=== PATIENT | female | born 1980 | race Caucasian/White ===

== ENCOUNTER 2020-07-06 17:37 | Observation (INO) ==
[2020-07-06 17:41] VITALS: BMI 17.9
[2020-07-06 18:10] LABS: BASOPHILS # (AUTO) 0.1 X10^3/uL (0.0-0.1); BASOPHILS % (AUTO) 0.8 % (0.2-1.0); EOSINOPHILS # (AUTO) 0.1 x10^3/uL (0.0-0.2); EOSINOPHILS % (AUTO) 1.3 % (0.9-2.9); HEMATOCRIT 42.2 % (36.0-47.0); HEMOGLOBIN 14.1 g/dL (12.0-16.0); LYMPHOCYTES # (AUTO) 3.2 X10^3/uL (1.3-2.9); LYMPHOCYTES % (AUTO) 35.5 % (21.0-51.0); MEAN CORPUSCULAR HEMOGLOBIN 34.7 pg (27.0-34.0); MEAN CORPUSCULAR HGB CONC 33.5 g/dL (33.0-35.0); MEAN CORPUSCULAR VOLUME 103.6 fL (80.0-100.0); MEAN PLATELET VOLUME 8.4 fL (7.4-11.0); MONOCYTES # (AUTO) 0.6 x10^3/uL (0.3-0.8); MONOCYTES % (AUTO) 6.6 % (0.0-13.0); NEUTROPHILS % (AUTO) 55.8 % (42.0-75.0); PLATELET COUNT 346 X10^3/uL (150.0-450.0); RED BLOOD COUNT 4.08 X10^6/uL (3.5-5.4); RED CELL DISTRIBUTION WIDTH 13.2 % (11.6-16.5); WHITE BLOOD COUNT 8.9 X10^3/uL (3.6-10.0)
[2020-07-06 18:29] LABS: ALANINE AMINOTRANSFERASE 23 Units/L (12-78); ALBUMIN 3.6 g/dL (3.4-5.0); ALKALINE PHOSPHATASE 168 Units/L (46-116); ASPARTATE AMINO TRANSFERASE 23 Units/L (15-37); BLOOD UREA NITROGEN 7 mg/dL (7-18); CALCIUM 8.9 mg/dL (8.5-10.1); CARBON DIOXIDE 21.7 mmol/L (21-32); CHLORIDE 101 mmol/L (98-107); CKMB % 1.9 % (<4); COR NA(FOR HYPERGLY) 144 mmol/L (136-145); CREATINE KINASE 53 Units/L (26-192); CREATINE KINASE MB < 1.0 ng/mL (0-4.0); CREATININE 1.07 mg/dL (0.55-1.02); MAGNESIUM 1.6 mg/dL (1.7-2.9); SODIUM 138 mmol/L (136-145); TOTAL PROTEIN 6.6 g/dL (6.4-8.2); TROPONIN I < 0.02 ng/mL (0-1.5); eGFR NON BLACK RACES > 60 (>60)
--- NOTE | 2020-07-06 19:02 | RAD ---
HISTORYCHEST PAIN/TIGHTNESSSTUDYCHEST, 1 [id number] lungs are clear. No pneumothorax or significant effusion.Heart size is normal.Bones are unremarkable.EKG leads are noted.IMPRESSION1. No significant abnormalityElectronically signed by: Manjinder Oleary (Jul 06, 2020 19:00:38)
--- NOTE | 2020-07-06 19:34 | DR.CP ---
HPI Time Seen Time Seen by Provider: 07/06/20 18:32 PCP Primary Care Physician: ASHLEE HPI Comment HPI Comment: Patient presents with chest pain and palpitations since a few days ago. Notes that she was seen here on for the same and was recommended for admission. Notes that she left AMA because she had no childcare. Notes that sx have persisted. Complaint Chief Complaint:: PT C/O FLUCTUATING HEART RATE AND INTERMITTEN CHEST PAIN/ TIGHTNESS. PT STATES SHE HAS BEEN HAVING THIS PROBLEM GOING ON SINCE LAST SUNDAY. PT STATES SHE CAME TO ED LAST SUNDAY. HER SYMPTOMS HAVE NOT GOTTEN ANY BETTER.- COVID-19 Coronavirus risk:travel/contact w/high risk person: No Has patient experienced Coronavirus symptoms: No Source History Provided: Patient Mode of Arrival Mode of Arrival: Ambulatory Timing Onset of Chief Complaint: 06/30/20 PMH PMH Past Medical History: Yes Past Medical History: Diabetes and Headaches Past Surgical History: Yes Surgical History: Hysterectomy Family History History of Family Medical Conditions: Yes Family Medical History: Diabetes Mellitus Social History Does patient currently use any type of tobacco product: Yes Have you used tobacco products in the last 12 months: Yes Type of Tobacco Use: Cigarettes Does any household member use tobacco: Yes Alcohol Use: None Do you use any recreational Drugs:: No Lives With: Family Lives Where: Home Travel Risk Coronavirus risk:travel/contact w/high risk person: No Has patient experienced Coronavirus symptoms: No Infectious screening In the last 2 months have you had wt loss of >10#?: NO Have you had fever, night sweats or hemotysis?: No Have you traveled outside the country in the last 6 months?: No Isolation: Standard ROS Review of Systems Constitutional: See HPI Cardiovascular: Chest Pain and Palpitations All Other Systems: Reviewed and Negative PE Vitals Vitals: Temperature 98.5 F Pulse Rate 112 Respiratory Rate 20 Blood Pressure [Left Arm] 99/58 Blood Pressure 121/56 O2 Sat by Pulse Oximetry 97 General Limitations: No Limitations General Appearance: Alert and In No Apparent Distress Head Head Exam: Normal Inspection, Atraumatic and Normocephalic Eyes Eye exam: Normal Appearance, PERRL and EOMI ENT ENT Exam: Normal Exam Chest Chest Inspection: Normal Inspection and Symmetric Chest Wall Rise Respiratory Respiratory Exam: Normal Lung Sounds Bilat Respiratory Exam: Bilateral: Clear to Auscultation Cardiovascular Cardiovascular Exam: Regular Rate, Normal Rhythm and Normal Heart Sounds Abdominal Exam Abdominal Exam: Normal Inspection, Normal Bowel Sounds and Soft Extremities Extremities Exam: Normal Inspection Neurologic Neurological Exam: Alert and Oriented X3 Psychiatric Psychiatric Exam: Normal Affect and Normal Mood Skin Skin Exam: Warm, Dry and Intact COURSE Reevaluation 1st: Unchanged Consultation Called: 20:09 Consultation Comments: Spoke with Dr. Gerard who accepts patient for admission. ROR Labs Reviewed Laboratory Results Reviewed?: Yes Result Diagrams: 07/06/20 17:50 07/06/20 17:50 Laboratory: WBC 8.9 X10^3/uL (3.6-10.0) 07/06/20 17:50 RBC 4.08 X10^6/uL (3.5-5.4) 07/06/20 17:50 Hgb 14.1 g/dL (12.0-16.0) 07/06/20 17:50 Hct 42.2 % (36.0-47.0) 07/06/20 17:50 MCV 103.6 fL (80.0-100.0) H 07/06/20 17:50 MCH 34.7 pg (27.0-34.0) H 07/06/20 17:50 MCHC 33.5 g/dL (33.0-35.0) 07/06/20 17:50 RDW 13.2 % (11.6-16.5) 07/06/20 17:50 Plt Count 346 X10^3/uL (150.0-450.0) 07/06/20 17:50 MPV 8.4 fL (7.4-11.0) 07/06/20 17:50 Neut % (Auto) 55.8 % (42.0-75.0) 07/06/20 17:50 Lymph % (Auto) 35.5 % (21.0-51.0) 07/06/20 17:50 [place] % (Auto) 6.6 % (0.0-13.0) 07/06/20 17:50 Eos % (Auto) 1.3 % (0.9-2.9) 07/06/20 17:50 Baso % (Auto) 0.8 % (0.2-1.0) 07/06/20 17:50 Neut # (Auto) 5.0 x10^3/uL (2.2-4.8) H 07/06/20 17:50 Lymph # (Auto) 3.2 X10^3/uL (1.3-2.9) H 07/06/20 17:50 [place] # (Auto) 0.6 x10^3/uL (0.3-0.8) 07/06/20 17:50 Eos # (Auto) 0.1 x10^3/uL (0.0-0.2) 07/06/20 17:50 Baso # (Auto) 0.1 X10^3/uL (0.0-0.1) 07/06/20 17:50 Absolute Nucleated RBC 0.1 /100WBC 07/06/20 17:50 PT 13.4 SECONDS (11.8-14.3) 07/06/20 18:07 INR Target Range - 07/06/20 18:07 INR 1.08 (0.8-1.3) 07/06/20 18:07 APTT 26.5 SECONDS (22.9-36.5) 07/06/20 18:07 PTT Comment - 07/06/20 18:07 D-Dimer < 0.27 ug/ml (0.0-0.57) 07/06/20 18:07 Sodium 138 mmol/L (136-145) 07/06/20 17:50 Corrected Sodium 144 mmol/L (136-145) 07/06/20 17:50 Potassium 3.3 mmol/L (3.5-5.1) L 07/06/20 17:50 Chloride 101 mmol/L (98-107) 07/06/20 17:50 Carbon Dioxide 21.7 mmol/L (21-32) 07/06/20 17:50 BUN 7 mg/dL (7-18) 07/06/20 17:50 Creatinine 1.07 mg/dL (0.55-1.02) H 07/06/20 17:50 Est GFR (MDRD) Af Amer > 60 (>60) 07/06/20 17:50 Est GFR (MDRD) Non-Af > 60 (>60) 07/06/20 17:50 Glucose 344 mg/dL (65-99) H 07/06/20 17:50 Calcium 8.9 mg/dL (8.5-10.1) 07/06/20 17:50 Corrected Calcium TNP 07/06/20 17:50 Magnesium 1.6 mg/dL (1.7-2.9) L 07/06/20 17:50 Total Bilirubin 0.20 mg/dL (0.2-1.0) 07/06/20 17:50 AST 23 Units/L (15-37) 07/06/20 17:50 ALT 23 Units/L (12-78) 07/06/20 17:50 Alkaline Phosphatase 168 Units/L (46-116) H 07/06/20 17:50 Creatine Kinase 53 Units/L (26-192) 07/06/20 17:50 CK-MB (CK-2) < 1.0 ng/mL (0-4.0) 07/06/20 17:50 CK/CKMB % Calc 1.9 % (<4) 07/06/20 17:50 Troponin I < 0.02 ng/mL (0-1.5) 07/06/20 17:50 Total Protein 6.6 g/dL (6.4-8.2) 07/06/20 17:50 Albumin 3.6 g/dL (3.4-5.0) 07/06/20 17:50 Globulin 3.0 g/dL (2.5-4.5) 07/06/20 17:50 Albumin/Globulin Ratio 1.2 Ratio (1.1-2.1) 07/06/20 17:50 TSH 3rd Generation 0.817 uIU/mL (0.358-3.74) 07/06/20 17:50 XRAY X-ray Results: HISTORY CHEST PAIN/TIGHTNESS STUDY CHEST, 1 VIEW COMPARISON 07/01/2020 FINDINGS The lungs are clear. No pneumothorax or significant effusion. Heart size is normal. Bones are unremarkable. EKG leads are noted. IMPRESSION 1. No significant abnormality Electronically signed by: Manjinder Oleary (Jul 06, 2020 19:00:38) Opioid Opioid Risk Tool Age (Ashok box if 16-45): Yes History of Preadolescent Sexual Abuse: No Total: 1 Total Score Risk Category: Low Risk Copyright: Maxime ROMERO predicting aberrant behaviors Diagnosis Discharge Problem: Acute chest pain, Heart palpitations
[2020-07-06] MEDS ORDERED: NS 1000 ML 1,000 ML ONE (20:40)
[2020-07-06] MEDS: NS 1000 ML 1,000 ML IV SCH ×2 (20:46→20:47)
[2020-07-06] MEDS ORDERED: LOPRESSOR TAB 50 MG PO SCH (21:00)
[2020-07-06 21:21] LABS: CREATINE KINASE 49 Units/L (26-192); CREATINE KINASE MB < 1.0 ng/mL (0-4.0); TROPONIN I < 0.02 ng/mL (0-1.5)
[2020-07-06] MEDS ORDERED: PATIENT'S HOME MEDICATION (Insulin Glargine [Basaglar Kwikpen U-100 Insulin] 100 unit/mL ( SUBCUT SCH (23:37)
[2020-07-07 02:27] LABS: BASOPHILS # (AUTO) 0.1 X10^3/uL (0.0-0.1); BASOPHILS % (AUTO) 1.2 % (0.2-1.0); EOSINOPHILS # (AUTO) 0.1 x10^3/uL (0.0-0.2); EOSINOPHILS % (AUTO) 1.7 % (0.9-2.9); HEMATOCRIT 37.7 % (36.0-47.0); HEMOGLOBIN 12.8 g/dL (12.0-16.0); LYMPHOCYTES # (AUTO) 3.2 X10^3/uL (1.3-2.9); LYMPHOCYTES % (AUTO) 45.2 % (21.0-51.0); MEAN CORPUSCULAR HEMOGLOBIN 35.2 pg (27.0-34.0); MEAN CORPUSCULAR HGB CONC 33.8 g/dL (33.0-35.0); MEAN CORPUSCULAR VOLUME 103.9 fL (80.0-100.0); MEAN PLATELET VOLUME 8.3 fL (7.4-11.0); MONOCYTES # (AUTO) 0.4 x10^3/uL (0.3-0.8); MONOCYTES % (AUTO) 6.4 % (0.0-13.0); NEUTROPHILS # (AUTO) 3.2 x10^3/uL (2.2-4.8); NEUTROPHILS % (AUTO) 45.5 % (42.0-75.0); PLATELET COUNT 309 X10^3/uL (150.0-450.0); RED BLOOD COUNT 3.63 X10^6/uL (3.5-5.4); RED CELL DISTRIBUTION WIDTH 13.2 % (11.6-16.5)
[2020-07-07 02:35] LABS: ALANINE AMINOTRANSFERASE 19 Units/L (12-78); ALKALINE PHOSPHATASE 143 Units/L (46-116); ASPARTATE AMINO TRANSFERASE 17 Units/L (15-37); BLOOD UREA NITROGEN 9 mg/dL (7-18); CALCIUM 8.3 mg/dL (8.5-10.1); CARBON DIOXIDE 25.3 mmol/L (21-32); CHLORIDE 106 mmol/L (98-107); CHOL/HDL RATIO 3.6 (0.0-5.0); CHOLESTEROL 172 mg/dL (0-200); COR CA(FOR HYPOALB) 9.1 mg/dL (8.5-10.1); COR NA(FOR HYPERGLY) 145 mmol/L (136-145); CREATININE 0.78 mg/dL (0.55-1.02); HDL CHOLESTEROL 48 mg/dL (40-60); SODIUM 140 mmol/L (136-145); TOTAL PROTEIN 5.6 g/dL (6.4-8.2); TRIGLYCERIDES 133 mg/dL (0-150); eGFR NON BLACK RACES > 60 (>60)
[2020-07-07 02:49] LABS: CKMB % 2.3 % (<4); CREATINE KINASE 43 Units/L (26-192); CREATINE KINASE MB < 1.0 ng/mL (0-4.0); TROPONIN I < 0.02 ng/mL (0-1.5)
[2020-07-07] MEDS ORDERED: HumuLIN R SC PRN (06:19)
[2020-07-07] MEDS ORDERED: HumuLIN R ONE (06:22)
[2020-07-07] MEDS ORDERED: HumaLOG SC SCH (06:30)
[2020-07-07 08:46] LABS: CKMB % 2.6 % (<4); CREATINE KINASE 38 Units/L (26-192); CREATINE KINASE MB < 1.0 ng/mL (0-4.0); TROPONIN I < 0.02 ng/mL (0-1.5)
[2020-07-07] MEDS ORDERED: LOPRESSOR TAB 50 MG PO SCH (09:00)
--- NOTE | 2020-07-07 09:57 | DR.SSS ---
SHORT STAY SUMMARY Admission Date Date of Admission: 07/06/20 Discharge Date Discharge Date: 07/07/20 Admission Diagnoses Admission Diagnoses: Chest pain Palpitations Hyperglycemia Discharge Diagnoses Discharge Diagnoses: Chest pain rule out Palpitations Anxiety Uncontrolled Type 2 diabetes mellitus Chief Complaint Chief Complaint: chest pain, palpitations History of Present Illness History of Present Illness: Oscar Mcqueen is a 39y/o female with a PMH of anxiety and Type 2 DM who presented last night with chest pain and palpitations. Patient had similar Sx last week and came to the ED. She was advised to be admitted but could not at the time due to unable to find care of her children. She states she has continued to have chest pain and palpitations for the past week so came back to the ED. She reports episodes happening for a few seconds at rest and exertion. It starts with palpitations, chest tightness and increased respirations. Patient reports feeling dizzy and feels like everything is closing in. She has not passed out during these episodes. Denies any triggers. She does report being in a lo of stress lately. She takes xanax prn but has not taken it in a few days. She reports taking insulin for diabetes, FSBG have been elevated in the 500-600 range at home. She does have a PCP but has not seen recently. ED work up Labs: troponin (-) elevated glucose EKG: no acute ST changes CXR: no acute process Patient was admitted as obs for telemetry monitoring and chest pain rule out. Past Medical History Past Medical History: Diabetes Past Surgical History Surgical History: Hysterectomy Allergies Allergies Allergy/AdvReac Type Severity Reaction Status Date / Time codeine Allergy Verified 01/26/20 09:52 Medications Home Medications: codeine Allergy (Verified 01/26/20 09:52) Family History Family Medical History: Diabetes Mellitus Social History Does patient currently use any type of tobacco product: Yes Have you used tobacco products in the last 12 months: Yes Type of Tobacco Use: Cigarettes How many years tobacco product used: 12 Does any household member use tobacco: No Alcohol Use: None Drug Use: None Review of Systems Constitutional: No Symptoms Reported Eyes: No Symptoms Reported ENT: No Symptoms Reported Respiratory: Shortness of Breath Cardiovascular: Chest Pain, Palpitations and Light Headedness Gastrointestinal: Nausea Genitourinary: No Symptoms Reported Musculoskeletal: No Symptoms Reported Skin: No Symptoms Reported Neurological: No Symptoms Reported Physical Exam Vital Signs: Last Vital Signs Temp 98.0 F 07/07/20 04:00 Pulse 63 07/07/20 04:00 Resp 18 07/07/20 04:00 BP 87/43 07/07/20 04:00 Pulse Ox 97 07/07/20 04:00 Oriented: Normal Eyes: Normal Ear: Normal Nose: Normal Throat: Normal Respiratory: Clear Throughout Cardiovascular: Normal Auscultation: Bowel Sounds: Normal Palpation: Normal Tenderness: Normal Skin: Normal Musculoskeletal: Normal Psychiatric: Anxiety Mood Description: Calm Affect: Anxious Speech Pattern: Clear and Appropriate Labs Labs: Laboratory Last Values WBC 7.0 X10^3/uL (3.6-10.0) 07/07/20 02:12 RBC 3.63 X10^6/uL (3.5-5.4) 07/07/20 02:12 Hgb 12.8 g/dL (12.0-16.0) 07/07/20 02:12 Hct 37.7 % (36.0-47.0) 07/07/20 02:12 MCV 103.9 fL (80.0-100.0) H 07/07/20 02:12 MCH 35.2 pg (27.0-34.0) H 07/07/20 02:12 MCHC 33.8 g/dL (33.0-35.0) 07/07/20 02:12 RDW 13.2 % (11.6-16.5) 07/07/20 02:12 Plt Count 309 X10^3/uL (150.0-450.0) 07/07/20 02:12 MPV 8.3 fL (7.4-11.0) 07/07/20 02:12 Neut % (Auto) 45.5 % (42.0-75.0) 07/07/20 02:12 Lymph % (Auto) 45.2 % (21.0-51.0) 07/07/20 02:12 [place] % (Auto) 6.4 % (0.0-13.0) 07/07/20 02:12 Eos % (Auto) 1.7 % (0.9-2.9) 07/07/20 02:12 Baso % (Auto) 1.2 % (0.2-1.0) H 07/07/20 02:12 Neut # (Auto) 3.2 x10^3/uL (2.2-4.8) 07/07/20 02:12 Lymph # (Auto) 3.2 X10^3/uL (1.3-2.9) H 07/07/20 02:12 [place] # (Auto) 0.4 x10^3/uL (0.3-0.8) 07/07/20 02:12 Eos # (Auto) 0.1 x10^3/uL (0.0-0.2) 07/07/20 02:12 Baso # (Auto) 0.1 X10^3/uL (0.0-0.1) 07/07/20 02:12 Absolute Nucleated RBC 0.1 /100WBC 07/07/20 02:12 PT 13.4 SECONDS (11.8-14.3) 07/06/20 18:07 INR Target Range - 07/06/20 18:07 INR 1.08 (0.8-1.3) 07/06/20 18:07 APTT 26.5 SECONDS (22.9-36.5) 07/06/20 18:07 PTT Comment - 07/06/20 18:07 D-Dimer < 0.27 ug/ml (0.0-0.57) 07/06/20 18:07 Sodium 140 mmol/L (136-145) 07/07/20 02:12 Corrected Sodium 145 mmol/L (136-145) 07/07/20 02:12 Potassium 4.0 mmol/L (3.5-5.1) 07/07/20 02:12 Chloride 106 mmol/L (98-107) 07/07/20 02:12 Carbon Dioxide 25.3 mmol/L (21-32) 07/07/20 02:12 BUN 9 mg/dL (7-18) 07/07/20 02:12 Creatinine 0.78 mg/dL (0.55-1.02) 07/07/20 02:12 Est GFR (MDRD) Af Amer > 60 (>60) 07/07/20 02:12 Est GFR (MDRD) Non-Af > 60 (>60) 07/07/20 02:12 Glucose 382 mg/dL (65-99) H 07/07/20 06:00 POC Glucose (mg/dL) 90 mg/dL (65-99) 07/06/20 22:54 Calcium 8.3 mg/dL (8.5-10.1) L 07/07/20 02:12 Corrected Calcium 9.1 mg/dL (8.5-10.1) 07/07/20 02:12 Magnesium 1.6 mg/dL (1.7-2.9) L 07/06/20 17:50 Total Bilirubin 0.20 mg/dL (0.2-1.0) 07/07/20 02:12 AST 17 Units/L (15-37) 07/07/20 02:12 ALT 19 Units/L (12-78) 07/07/20 02:12 Alkaline Phosphatase 143 Units/L (46-116) H 07/07/20 02:12 Creatine Kinase 38 Units/L (26-192) 07/07/20 08:15 CK-MB (CK-2) < 1.0 ng/mL (0-4.0) 07/07/20 08:15 CK/CKMB % Calc 2.6 % (<4) 07/07/20 08:15 Troponin I < 0.02 ng/mL (0-1.5) 07/07/20 08:15 Total Protein 5.6 g/dL (6.4-8.2) L 07/07/20 02:12 Albumin 3.0 g/dL (3.4-5.0) L 07/07/20 02:12 Globulin 2.6 g/dL (2.5-4.5) 07/07/20 02:12 Albumin/Globulin Ratio 1.2 Ratio (1.1-2.1) 07/07/20 02:12 Triglycerides 133 mg/dL (0-150) 07/07/20 02:12 Cholesterol 172 mg/dL (0-200) 07/07/20 02:12 LDL Cholesterol, Calc 97 mg/dL (0-100) 07/07/20 02:12 HDL Cholesterol 48 mg/dL (40-60) 07/07/20 02:12 Cholesterol/HDL Ratio 3.6 (0.0-5.0) 07/07/20 02:12 TSH 3rd Generation 0.817 uIU/mL (0.358-3.74) 07/06/20 17:50 Assessment/Plan (1) Acute hyperglycemia: (2) Heart palpitations: (3) Chest pain, rule out acute myocardial infarction: (4) Type 2 diabetes mellitus: Hospital Course Hospital Course: Patient was admitted for obeservation with telemetry monitoring and chest pain rule out. Patient's 3 sets of cardiac enzymes were normal. EKG was normal with no acute changes. Patient's telemetry did not show any abnormal rhythm. Patient's vitals remained stable, HR in the 80s. She denied chest pain in the morning. Patient's labs were monitored and did show elevated glucose. She was started on Levemir and SSI. Patient was stable for discharge and will follow up with PCP. Patient likely does have untreated anxiety that could be causing her Sx. Advised to discuss with PCP. Discharge Medications Discharge Medications: Prescriptions: Discharge Disposition Discharge Disposition: Home
[2020-07-07 10:52] VITALS: BP 110/70
[2020-07-07] MEDS ORDERED: SNACK - Diabetic Appropriate PO SCH (20:00)
[2020-07-07] MEDS ORDERED: LANTUS SC SCH (21:00)
== END 2020-07-07 10:50 | disposition home or self-care (01) ==
LOC: ER 17:49 → OBS 17:49
PROVIDERS: ADMIT Internal Medicine; ATTEND Internal Medicine
DX: E11.65 Type 2 diabetes mellitus with hyperglycemia; F41.8 Other specified anxiety disorders; R07.89 Other chest pain; R06.02 Shortness of breath